=== PATIENT | female | born 1990 | race Caucasian/White ===

== ENCOUNTER 2019-12-15 15:33 | Emergency (ER) | payer OTHER, SELFPAY ==
[2019-12-15 15:40] VITALS: BP 116/71; PULSE 117; RESP 20; TEMP 37.6; O2SAT 96
--- NOTE | 2019-12-15 17:06 | ED.GENADULT ---
HPI - General Adult General Chief complaint: Unspecified Stated complaint: ALCOHOL USE Time Seen by Provider: 12/15/19 16:44 History of Present Illness HPI narrative: Found sleeping in a running vehicle outside of her boyfriends house. Told that she needed to come to the ED. She admits to drinking prior to this incident. She has no complaints at this time. Related Data Home Medications Medication Instructions Recorded Confirmed No Home Medications 12/15/19 12/15/19 Allergies Allergy/AdvReac Type Severity Reaction Status Date / Time Sulfa (Sulfonamide Allergy Unknown Other Unverified 12/15/19 15:51 Antibiotics) Review of Systems Review of Systems: All systems reviewed & are unremarkable except as noted in HPI and below Constitutional: Constitutional: Denies fever(s) Cardiovascular: Cardiovascular: Denies chest pain Respiratory: Respiratory: Denies dyspnea Gastrointestinal: Gastrointestinal: Denies abdominal pain Neurologic: Denies numbness and Denies weakness PMFSH Social History Social History Gender identity (if verbalized by the patient): Female Exam Const: General: healthy appearing, no acute distress and alert Nutritional Appearance: well nourished Orientation/consciousness: patient oriented x3 HENMT: Head: normal to inspection Resp: Effort & Inspection: normal respiratory effort Neuro: General: patient oriented x3, moves all extremities and CN's II-XI intact bilaterally Speech: normal speech Gait exam (Neuro): Normal gait present Extrem: General: normal to inspection Course Vital Signs Vital signs: Vital Signs Temperature 37.6 C 12/15/19 15:40 Pulse Rate 117 H 12/15/19 15:40 Respiratory Rate 12/15/19 15:40 Blood Pressure 116/71 12/15/19 15:40 Pulse Oximetry 96 12/15/19 15:40 Temperature 37.6 C 12/15/19 15:40 Pulse Rate 117 H 12/15/19 15:40 Respiratory Rate 12/15/19 15:40 Blood Pressure 116/71 12/15/19 15:40 Pulse Oximetry 96 12/15/19 15:40 Medical Decision Making MDM Narrative Medical decision making narrative: She has no complaints and she is fully oriented with stable gait. Will discharge with sober ride. Medical Records Medical records reviewed: Yes I reviewed the patient's medical records. Vital Signs Vital Signs: Vital Signs Temperature 37.6 C 12/15/19 15:40 Pulse Rate 117 H 12/15/19 15:40 Respiratory Rate 20 12/15/19 15:40 Blood Pressure 116/71 12/15/19 15:40 Pulse Oximetry 96 12/15/19 15:40 Temperature 37.6 C 12/15/19 15:40 Pulse Rate 117 H 12/15/19 15:40 Respiratory Rate 20 12/15/19 15:40 Blood Pressure 116/71 12/15/19 15:40 Pulse Oximetry 96 12/15/19 15:40 Discharge Plan Discharge Clinical Impression: Alcohol intoxication Qualifiers: Complication of substance-induced condition: uncomplicated Qualified Code(s): F10.920 - Alcohol use, unspecified with intoxication, uncomplicated Patient Disposition: Home, Self-Care Condition: Stable Instructions: Alcohol Intoxication (ED) Prescriptions: No Action No Home Medications RF: 0 Follow-up/Referrals: PHYSICIAN,PHYSICIAN [Primary Care Provider] -
--- NOTE | 2019-12-15 17:21 | PC.NURSE ---
pt decided it was time for her to leave pt did not allow any vitals to be taken and refused discharge papers police called pt was yelling at staff and refusing to call a ride after police arrived pt called her mother to pick her up pt at front door with police pt signed discharge papers and refused info paperwork at 1720
== END 2019-12-15 17:41 | disposition home or self-care (01) ==
PROVIDERS: Emergency Provider Emergency Medicine
DX: F10.120 Alcohol abuse with intoxication, uncomplicated (principal); Y90.9 Presence of alcohol in blood, level not specified
CPT/HCPCS: 99281

== ENCOUNTER 2020-01-12 16:38 | Emergency (ER) | payer OTHER, SELFPAY ==
--- NOTE | ~2020-01-12 | XR_ITS ---
EXAMINATION: XR chest 1V portable INDICATION: Chest and abdominal pain TECHNIQUE: Portable AP chest at 1718 hours COMPARISON: 03/27/2019 FINDINGS: The lungs are free of acute opacities. There is no pleural effusion or pneumothorax. The ca rdiomediastinal silhouette is normal. The visualized bones and soft tissues are unremarkable. IMPRESSION: 1. No acute cardiopulmonary abnormality. Reviewed, dictated and finalized at location A.
[2020-01-12 16:44] VITALS: BP 140/102; PULSE 119; RESP 18; TEMP 36.3; O2SAT 98
--- NOTE | 2020-01-12 17:05 | ED.ABDPAIN ---
HPI - Abdominal Pain General Chief Complaint: Abdominal Pain Stated Complaint: n/v, abd and back pain Time Seen by Provider: 01/12/20 16:42 Source: patient and family Mode of arrival: ambulatory Limitations: no limitations History of Present Illness HPI narrative: Patient is a 29-year-old female who presents with several days duration of upper respiratory symptoms noting sore throat fever chills body aches nonproductive cough with associated vomiting and diarrhea with belly cramping. Patient notes she was positive for strep pharyngitis at her work started on antibiotics was also tested for COVID but they have been unable to find her results. On arrival patient notes that she cannot keep down any fluids. Patient has not taken anything for her symptoms due to inability to tolerate p.o. intake in the last 2 days Related Data Allergies Allergy/AdvReac Type Severity Reaction Status Date / Time Sulfa (Sulfonamide Allergy Unknown Other Unverified 01/12/20 18:24 Antibiotics) Review of Systems Review of Systems: All systems reviewed & are unremarkable except as noted in HPI and below PMFSH Social History Social History Gender identity (if verbalized by the patient): Female Exam Narrative: Exam Narrative: GENERAL: Ill-appearing, well-nourished, and in no acute distress. HEAD: Normocephalic, atraumatic. EYES: PERRLA and EOMI. ENT: Nares clear, no rhinorrhea or epistaxis. Mucous membranes moist. Oropharynx with erythema and without tonsillar hypertrophy exudate or other lesions. NECK: Supple. No adenopathy or masses. CHEST: Clear to auscultation. No respiratory distress. No wheezes rales or rhonchi HEART: Tachycardic rate and irregular rhythm. No murmur heard. Normal peripheral pulses. ABDOMEN: Soft, generalized tenderness, nondistended EXTREMITIES: Normal range of motion. No edema. SKIN: Warm, dry, no rash. NEURO: No focal deficits. Alert and oriented x3. PSYCH: Normal mood and affect. Course Course Emergency Course: Patient in the room at this time resting comfortably being hydrated feeling much better with interventions will be discharged home with follow-up with primary care also instructed with with reasons to return patient nontoxic-appearing. Patient has been given fluids and medications in the emergency department with improvement of symptoms as noted. Patient tolerating p.o. intake Vital Signs Vital signs: Vital Signs Temperature 97.4 F L 01/12/20 16:44 Pulse Rate 119 H 01/12/20 16:44 Respiratory Rate 18 01/12/20 16:44 Blood Pressure 140/102 H 01/12/20 16:44 Pulse Oximetry 98 01/12/20 16:44 Temperature 97.4 F L 01/12/20 16:44 Pulse Rate 90 01/12/20 18:40 Respiratory Rate 20 01/12/20 18:40 Blood Pressure 147/98 H 01/12/20 18:40 Pulse Oximetry 100 01/12/20 18:40 MDM - Abdominal Pain MDM Narrative Medical decision making narrative: Patient in the room at this time in no distress feeling better with interventions given Bicillin shot in the emergency department. Patient was hydrated and tested for COVID-19. Patient agreeing to self quarantine until results have been obtained. Patient is not hypoxic in the room in no distress had improvement with medications tolerating p.o. intake. Patient provided with reasons to return Lab Data Result diagrams: 01/12/20 17:30 01/12/20 17:30 Labs: Lab Results 01/12/20 01/12/20 01/12/20 Range/Units 17:30 17:30 17:30 WBC 8.9 (4.5-10.0) K/mm3 RBC 4.04 L (4.2-5.4) M/mm3 Hgb 14.6 (12.0-15.0) g/dL Hct 41.3 (37.0-47.0) % MCV 102.2 H (80-100) fl MCH 36.1 H (26-34) pg MCHC 35.4 (32-36) g/dl RDW 15.4 H (11.5-14.5) % Plt Count 155 (150-375) k/mm3 MPV 9.7 (7.4-10.4) fl Immature Gran % (Auto) 0.5 (0-0.5) % Neut % (Auto) 79.9 H (45.5-73.1) % Lymph % (Auto) 13.9 L (18.3-44.2) % [place] % (Auto) 5.3
[2020-01-12] MEDS: FAMOTIDINE 20 MG/2 ML VIAL IV PUSH (17:19)
[2020-01-12] MEDS: ONDANSETRON INJ 4 MG/2 ML VIAL IV PUSH (17:19)
[2020-01-12] MEDS: SODIUM CHLORIDE 0.9% IV 1,000 ML 999 ML (17:19)
[2020-01-12 17:38] LABS: Basophils Percent Auto 0.3 % (0.2-1.2); Eosinophils Percent Auto 0.1 % (0-4.4); Hematocrit 41.3 % (37.0-47.0); Hemoglobin 14.6 g/dL (12.0-15.0); Immature Granulocyte Absolute 0.04 K/mm3 (0.00-0.031); Immature Granulocyte Percent A 0.5 % (0-0.5); Lymphocytes Absolute Auto 1.23 K/mm3 (0.9-3.2); Lymphocytes Percent Auto 13.9 % (18.3-44.2); Mean Corpuscular HGB Conc 35.4 g/dl (32-36); Mean Corpuscular Hemoglobin 36.1 pg (26-34); Mean Corpuscular Volume 102.2 fl (80-100); Mean Platelet Volume 9.7 fl (7.4-10.4); Monocytes Absolute Auto 0.5 K/mm3 (0.1-0.6); Monocytes Percent Auto 5.3 % (2.6-8.5); Neutrophils Absolute Auto 7.1 K/mm3 (1.3-6.7); Neutrophils Percent Auto 79.9 % (45.5-73.1); Platelet Count Result 155 k/mm3 (150-375); Red Blood Count 4.04 M/mm3 (4.2-5.4); Red Cell Distribution Width 15.4 % (11.5-14.5); White Blood Count 8.9 K/mm3 (4.5-10.0)
[2020-01-12 17:47] LABS: INR 1.1; Prothrombin Time 13.5 Seconds (11.1-14.7)
[2020-01-12 17:48] LABS: Partial Thromboplastin Time 28.1 SECONDS (22.3-36.8)
[2020-01-12 17:53] LABS: Alanine Aminotransferase 36 U/L (4-35); Alkaline Phosphatase 134 U/L (38-126); Aspartate Amino Transferase 75 U/L (14-36); Blood Urea Nitrogen 12 mg/dL (7-17); CRP < 0.5 mg/dL (<1.0); Calcium 8.5 mg/dL (8.4-10.2); Carbon Dioxide 30 mmol/L (22-30); Chloride 97 mmol/L (98-107); Estimated CRCL calculation 138 ml/min; Estimated Glomerular Filt Rate > 60; Glucose 121 mg/dL (65-105); Lipase 89 U/L (23-300); Potassium 3.9 mmol/L (3.4-5.0); Sodium 135 mmol/L (137-145)
[2020-01-12 18:07] LABS: Lactic Acid Reflex 1.4 mmol/L (0.7-2.1)
[2020-01-12] MEDS: LACTATED RINGERS 1,000 ML 999 ML IV CONT (18:08)
[2020-01-12 18:40] VITALS: BP 147/98; PULSE 90; RESP 20; O2SAT 100
[2020-01-12 19:35] VITALS: BP 130/70; PULSE 80; RESP 20; O2SAT 99
[2020-01-12] MEDS: PENICILLIN G BENZATHINE 1,200,000 UNITS/2 ML SYRINGE 1200000 UNITS IM (19:35)
[2020-01-14 13:33] LABS: SARS-CoV-2 RNA PCR Negative
== END 2020-01-12 19:37 | disposition home or self-care (01) ==
PROVIDERS: Emergency Medicine Emergency Medical Services; Emergency Provider Emergency Medicine; PCP Internal Medicine Gastroenterology
DX: J06.9 Acute upper respiratory infection, unspecified (principal); Z20.828 Contact with and (suspected) exposure to other viral communicable diseases
CPT/HCPCS: 36415; 71045; 80053; 83605; 83690; 85025; 85610; 85730; 86140; 87040; 87081; 87635; 87880; 96365; 96372; 96375; 99284; C9803; J0131; J0561; J1100; J2405; J7030; J7120; U0003

== ENCOUNTER 2020-04-09 17:56 | Observation (INO) | payer OTHER, SELFPAY ==
--- NOTE | ~2020-04-09 | CT_ITS ---
EXAMINATION: CT abdomen pelvis w con INDICATION: Abdominal and rectal pain TECHNIQUE: Computed tomographic images of the abdomen and pelvis were obtained after the administrati on of 100 cc of Omnipaque 350 intravenous contrast. The dose-length product (DLP) was 435.66 mGy-cm. Automated exposure control and iterative reconstruction technique were employed. COMPARISON: None FINDINGS: The lung bases are clear. The heart size is normal. The liver is diffusely low in attenuati on when compared with the spleen, consistent with hepatic steatosis. The spleen, pancreas, gallbladde r, and adrenal glands are normal. The kidneys are unremarkable. No pathologically enlarged abdominal or pelvic lymph nodes are identified. There is no free intraperitoneal gas or evidence of bowel obstr uction. There is a 1.6 x 1.0 cm cystic area to the right of midline below the level of the pubic symp hysis which appears to be associated with the inferior vagina/labia majora. IMPRESSION: 1. No CT correlate for the patient's symptoms. 2. Likely Bartholin's gland cyst to the right of midline in the pelvis. Reviewed, dictated and finalized at location A.
[2020-04-09 18:12] VITALS: BP 141/86; PULSE 130; RESP 19; TEMP 36.6; O2SAT 99
[2020-04-09 18:29] LABS: Basophils Absolute Auto 0.1 K/mm3 (0.0-0.1); Basophils Percent Auto 0.5 % (0.2-1.2); Eosinophils Absolute Auto 0.1 K/mm3 (0-0.3); Eosinophils Percent Auto 0.3 % (0-4.4); Hematocrit 43.2 % (37.0-47.0); Hemoglobin 15.2 g/dL (12.0-15.0); Immature Granulocyte Absolute 0.07 K/mm3 (0.00-0.031); Immature Granulocyte Percent A 0.5 % (0-0.5); Lymphocytes Absolute Auto 2.46 K/mm3 (0.9-3.2); Lymphocytes Percent Auto 16.2 % (18.3-44.2); Mean Corpuscular HGB Conc 35.2 g/dl (32-36); Mean Corpuscular Hemoglobin 34.9 pg (26-34); Mean Corpuscular Volume 99.1 fl (80-100); Mean Platelet Volume 8.6 fl (7.4-10.4); Monocytes Absolute Auto 0.6 K/mm3 (0.1-0.6); Monocytes Percent Auto 3.8 % (2.6-8.5); Neutrophils Percent Auto 78.7 % (45.5-73.1); Platelet Count Result 306 k/mm3 (150-375); Red Blood Count 4.36 M/mm3 (4.2-5.4); Red Cell Distribution Width 13.9 % (11.5-14.5); White Blood Count 15.2 K/mm3 (4.5-10.0)
[2020-04-09 18:42] LABS: Alanine Aminotransferase 27 U/L (4-35); Albumin Level 4.2 g/dL (3.5-5.1); Alkaline Phosphatase 100 U/L (38-126); Anion Gap 11 mmol/L (8-16); Aspartate Amino Transferase 40 U/L (14-36); Bilirubin,Total 0.8 mg/dL (0.2-1.3); Blood Urea Nitrogen 10 mg/dL (7-17); Calcium 9.6 mg/dL (8.4-10.2); Carbon Dioxide 27 mmol/L (22-30); Chloride 101 mmol/L (98-107); Estimated CRCL calculation 102 ml/min; Estimated Glomerular Filt Rate > 60; Glucose 115 mg/dL (65-105); Lipase 61 U/L (23-300); Potassium 3.7 mmol/L (3.4-5.0); Sodium 139 mmol/L (137-145)
[2020-04-09 18:57] VITALS: BP 132/77; PULSE 120; RESP 14; O2SAT 100
--- NOTE | 2020-04-09 19:18 | ED.GENADULT ---
HPI - General Adult General Chief complaint: Unspecified Stated complaint: Rectal pain Time Seen by Provider: 04/09/20 19:03 Source: RN notes reviewed History of Present Illness HPI narrative: Patient presents emergency department from home for rectal pain. Patient states that she has had rectal pain that began 3 days ago and progressively worsened. States she has a history of hemorrhoids and believes it was hemorrhoids but states that the symptoms of become so severe that she cannot longer sit or touch the area. States that the pain is progressed into the abdomen and she has had associated nausea and vomiting. She denies any fevers or chills chest pain shortness of breath or any other symptoms. States she is taken no pain medication today patient states she has noted some drainage from the rectal region that she states is nonbloody Related Data Home Medications Medication Instructions Recorded Confirmed Adderall 20 mg BID 04/10/20 04/10/20 loratadine [Claritin] 10 mg PO PRN PRN 04/10/20 04/10/20 ondansetron 4 mg PO 4XW PRN 04/10/20 04/10/20 Allergies Allergy/AdvReac Type Severity Reaction Status Date / Time Sulfa (Sulfonamide Allergy Unknown Other Verified 04/09/20 18:26 Antibiotics) Review of Systems Review of Systems: Narrative: Gen.: Denies fevers or chills ENT: Denies congestion Respiratory: Denies shortness of breath or cough CV: Denies chest pain or palpitations GI: See HPI denies burning, urgency, frequency or hematuria Musculoskeletal: Denies back pain or muscle pain Neuro: Denies numbness, tingling, weakness or focal weakness Skin: Denies rash Except as documented, all other systems reviewed and negative FOR[facility]LY [facility] Past Medical History Medical History (Updated 04/10/20 @ 04:56 by Yves Day DO) ADHD Patient denies significant medical history Family History Family History Father Colon cancer Social History Social History Smoking status: Never smoker Alcohol intake: current Drinks per week: 5 Substance use: never Substance use type: does not use Spiritual care concerns: No Exam Narrative: Exam Narrative: APPEARANCE: No acute distress, nontoxic, resting in bed HEENT: Normocephalic, atraumatic, OMM RESPIRATORY: No respiratory distress, clear to auscultation bilaterally with no rhonchi wheezing or rales CARDIOVASCULAR: RRR s murmur ABDOMINAL: Soft, nondistended, tender palpation right lower quadrant left lower quadrant, no tenderness right upper quadrant left upper quadrant, no rebound or guarding Rectal: Erythema diffusely around the rectum. No abscesses seen or fluctuance hemorrhoid present with no active bleeding Pelvic: Normal external exam, no abscesses seen, small amount of thick whitish-yellow discharge in vaginal canal cervix is closed, no cervical motion tenderness MUSCULOSKELETAl: Moves all extremities. No clubbing, cyanosis or edema. NEURO: Awake and alert. Following commands, speech normal, no focal deficits SKIN:: Warm, dry. Normal Color PSYCHIATRIC: Normal affect/mood Course Course Emergency Course: Discussed Dr Calloway presentation work-up. Discussed CT scan and no evidence of abscess or Bartholin's gland cyst seen on eval agrees with consult will follow as inpatient Discussed Dr. Tristan presentation work-up. Agrees with consult follow as inpatient Discussed with Dr. Newell presentation work-up. Agrees with admission agrees with starting patient on Zosyn and bank Discussed with patient and family results of workup and diagnosis. Discussed need for admission. Patient and family understand and agree to current treatment plan Vital Signs Vital signs: Vital Signs Temperature 97.9 F 04/09/20 18:12 Pulse Rate 130 H 04/09/20 18:12 Respiratory Rate 19 04/09/20 18:12 Blood Pressure 141/86 H 04/09/20 18:12 Pulse Oximetry 99 04/09/20 18:12
[2020-04-09] MEDS: SODIUM CHLORIDE 0.9% IV 1,000 ML 999 ML IV CONT ×2 (19:23→20:43)
[2020-04-09] MEDS: MORPHINE SULFATE (*CRX) 4 MG/ML INJ IV PUSH (19:23)
[2020-04-09] MEDS: ONDANSETRON INJ 4 MG/2 ML VIAL IV PUSH (19:23)
[2020-04-09 19:34] LABS: Add Urine Microscopic? YES; Amorphous Sediment Urine Few; Appearance Urine Cloudy (Clear); Bacteria Urine Trace /hpf; Bilirubin Urine 1+ (Negative); Blood Urine 1+ (Negative); Color Urine Amber (Yellow); Glucose Urine UA Negative (Negative); Hyaline Casts Urine 15-19 /lpf; Ketones Urine Negative (Negative); Leukocyte Esterase Ur 1+ LEU/UL (Negative); Mucus Urine Heavy /lpf; Nitrate Urine Negative (Negative); Protein Urine 1+ mg/dL (Negative); Squamous Epithelial Cell Urine Many /hpf (Few); WBC Urine 31-50 /hpf
[2020-04-09 19:39] LABS: Lactic Acid Reflex 1.4 mmol/L (0.7-2.1)
[2020-04-09 20:30] VITALS: BP 125/87; PULSE 106; RESP 18; O2SAT 99
[2020-04-09] MEDS: KETOROLAC 30 MG/ML VIAL (*BKC) IV PUSH (20:45)
[2020-04-09] MEDS: MORPHINE SULFATE (*CRX) 2 MG/ML INJ IV PUSH (22:29)
[2020-04-09 22:33] VITALS: BP 126/94; PULSE 112; RESP 19; O2SAT 100
[2020-04-10 00:20] VITALS: BP 134/94; PULSE 99; RESP 18; O2SAT 100
--- NOTE | 2020-04-10 00:34 | ADMGEN ---
This patient, Jazmin Fay, was admitted to 2 Medical Room 256-01. Patient/family oriented to hospital policies and general routines including ID bracelet, bed and alarms, visiting hours, pain management, procedures, bathroom and other care routines, personal items, smoking policy, room service/diet, and visiting hours. Valuables list has been completed. Information on how to activate the Rapid Response Team has been discussed. Patient/Family are encouraged to report perceived risks to care and to ask questions if they do not understand what they are told or what they should do.
[2020-04-10 01:15] VITALS: BP 125/87; PULSE 85; RESP 16; TEMP 36.3; O2SAT 100; BMI 26.6
[2020-04-10] MEDS: MORPHINE SULFATE (*CRX) 4 MG/ML INJ IV PUSH ×5 (01:17→20:38)
[2020-04-10] MEDS: SODIUM CHLORIDE 0.9% IV 1,000 ML 125 ML IV CONT ×3 (01:21→23:15)
--- NOTE | 2020-04-10 03:55 | PM.IMHP ---
H&P: HPI History of Present Illness Date/Time: 04/10/20 03:55 Chief complaint: abd pain, rectal cellulitis, leukocytosis Narrative: This is a pleasant 37-year-old female with known ADHD who presented to the hospital for evaluation of rectal pain. Patient complains having severe rectal pain for the past 3 days. associated symptoms include nausea and vomiting although she denies any fevers, chills, chest pain, rectal bleeding, or diarrhea. the patient does report that she has hemorrhoids that have bothered her in the past. The patient was evaluated emergency room this evening and routine labs were obtained which demonstrated leukocytosis of 15,200 and urinalysis was grossly abnormal. ER provider started wide-spectrum antibiotics as it was thought that the patient may have perineum cellulitis. CT abdomen pelvis was obtained which demonstrated a Bartholin's gland cyst to the right of midline in the pelvis. ER provider has consulted gynecology to evaluate the patient. General surgery has also been consulted. on further questioning the patient does admit that she has had burning urination over the past few days and some vaginal discharge which he believes is related to a possible UTI. Review of Systems Review of Systems: All systems reviewed & are unremarkable except as noted in HPI and below PMFSH Past Medical History Medical History (Updated 04/10/20 @ 05:43 by Fernando Newell MD) ADHD Patient denies significant medical history Family History Family History Father Colon cancer Social History Social History Smoking status: Never smoker Alcohol intake: current Drinks per week: 5 Substance use: never Substance use type: does not use Spiritual care concerns: No Meds Home Medications and Allergies Home Medications Medication Instructions Recorded Confirmed Type Adderall 20 mg BID 04/10/20 04/10/20 History loratadine [Claritin] 10 mg PO PRN PRN 04/10/20 04/10/20 History ondansetron 4 mg PO 4XW PRN 04/10/20 04/10/20 History Allergies Allergy/AdvReac Type Severity Reaction Status Date / Time Sulfa (Sulfonamide Allergy Unknown Other Verified 04/09/20 18:26 Antibiotics) Vital Signs Vital Signs - 24 hr 04/09/20 18:12 04/09/20 18:57 04/09/20 20:30 Temperature 36.6 C Pulse Rate 130 H 120 H 106 H Respiratory Rate 19 14 18 Blood Pressure 141/86 H 132/77 125/87 Pulse Oximetry 99 100 99 04/09/20 22:33 04/10/20 00:20 04/10/20 01:15 Temperature 36.3 C L Pulse Rate 112 H 99 85 Respiratory Rate 19 18 16 Blood Pressure 126/94 H 134/94 H 125/87 Pulse Oximetry 100 100 100 Exam Const: General: cooperative, alert, awake, in distress mild and uncomfortable Nutritional Appearance: well nourished Orientation/consciousness: patient oriented x3 HENMT: Head: normal to inspection General nose exam: Normal external nose present Face and sinus: normal facial exam Mouth: Yes Normal oral and palatal mucosa present and Yes oropharynx normal Eyes: Pupils: Equal, round and reactive pupils present EOM: EOMs intact bilaterally Neck: Neck: supple and no JVD Thyroid: thyroid normal Lymphatic: lymphadenopathy not noted Resp: Effort & Inspection: normal respiratory effort Auscultation: clear to auscultation bilaterally Cardio: Rate: tachycardic Rhythm: regular rhythm Heart sounds: no murmurs GI: Inspection: normal to inspection Auscultation: normal bowel sounds Rectal Exam: External hemorrhoid(s) present ( large external hemorrhoid++ ) Skin: General skin exam: erythema ( of perineum++ ) Neuro: General: patient oriented x3 Cranial nerves: Yes CN's II-XII intact bilaterally and Yes Equal, round and reactive pupils present Speech: normal speech Motor exam (neuro): 5/5 motor strength present throughout Sensory Exam: normal sensation Extrem: General: normal to inspectio
[2020-04-10] MEDS: BENZOCAINE 20% HEMORRHOIDAL OINTMENT 28 GM 1 APPLIC TOPICAL (04:43)
[2020-04-10 06:00] VITALS: BP 122/77; PULSE 89; RESP 16; TEMP 36.1; O2SAT 98
[2020-04-10 06:06] LABS: Basophils Absolute Auto 0.1 K/mm3 (0.0-0.1); Basophils Percent Auto 0.5 % (0.2-1.2); Eosinophils Absolute Auto 0.2 K/mm3 (0-0.3); Eosinophils Percent Auto 2.2 % (0-4.4); Hematocrit 35.7 % (37.0-47.0); Hemoglobin 12.3 g/dL (12.0-15.0); Immature Granulocyte Absolute 0.05 K/mm3 (0.00-0.031); Immature Granulocyte Percent A 0.5 % (0-0.5); Lymphocytes Absolute Auto 2.23 K/mm3 (0.9-3.2); Mean Corpuscular HGB Conc 34.5 g/dl (32-36); Mean Corpuscular Hemoglobin 34.1 pg (26-34); Mean Corpuscular Volume 98.9 fl (80-100); Monocytes Absolute Auto 0.5 K/mm3 (0.1-0.6); Monocytes Percent Auto 5.4 % (2.6-8.5); Neutrophils Absolute Auto 6.6 K/mm3 (1.3-6.7); Neutrophils Percent Auto 68.4 % (45.5-73.1); Platelet Count Result 224 k/mm3 (150-375); Red Blood Count 3.61 M/mm3 (4.2-5.4); Red Cell Distribution Width 13.6 % (11.5-14.5); White Blood Count 9.7 K/mm3 (4.5-10.0)
[2020-04-10 06:22] LABS: Alanine Aminotransferase 16 U/L (4-35); Albumin Level 2.8 g/dL (3.5-5.1); Alkaline Phosphatase 69 U/L (38-126); Anion Gap 5 mmol/L (8-16); Aspartate Amino Transferase 24 U/L (14-36); Bilirubin,Total 0.8 mg/dL (0.2-1.3); Blood Urea Nitrogen 10 mg/dL (7-17); Calcium 7.9 mg/dL (8.4-10.2); Carbon Dioxide 24 mmol/L (22-30); Chloride 107 mmol/L (98-107); Estimated CRCL calculation 138 ml/min; Estimated Glomerular Filt Rate > 60; Glucose 128 mg/dL (65-105); Potassium 3.4 mmol/L (3.4-5.0); Sodium 136 mmol/L (137-145)
[2020-04-10] MEDS: ONDANSETRON INJ 4 MG/2 ML VIAL IV PUSH ×3 (08:30→18:58)
[2020-04-10] MEDS: HYDROcodone/acetaminophen (*CRX) 5-325 MG TABLET 1 TAB PO ×3 (10:50→23:19)
[2020-04-10] MEDS: WITCH HAZEL 40 PADS 1 PAD TOPICAL (12:40)
--- NOTE | 2020-04-10 12:40 | PM.IMHP ---
H&P: HPI History of Present Illness Date/Time: 04/10/20 12:40 Chief complaint: Rectal pain Narrative: 29 y/o with a 3 day history of pain in the rectum. No fevers. Pain medicines have not helped. Recently and has had a new sexual partner. The ED physician phoned me last evening to discuss this patient's case. In particular, there was a small Bartholin's gland cyst seen on CT. The patient says she has never been diagnosed with one in the past. She has no diarrhea. Review of Systems Review of Systems: All systems reviewed & are unremarkable except as noted in HPI and below PMFSH Past Medical History Medical History ADHD Patient denies significant medical history Family History Family History Father Colon cancer Social History Social History Smoking status: Never smoker Alcohol intake: current Drinks per week: 5 Substance use: never Substance use type: does not use Spiritual care concerns: No Comments Past OB History: twins at term Meds Home Medications and Allergies Home Medications Medication Instructions Recorded Confirmed Type Adderall 20 mg BID 04/10/20 04/10/20 History loratadine [Claritin] 10 mg PO PRN PRN 04/10/20 04/10/20 History ondansetron 4 mg PO 4XW PRN 04/10/20 04/10/20 History Allergies Allergy/AdvReac Type Severity Reaction Status Date / Time Sulfa (Sulfonamide Allergy Unknown Other Verified 04/09/20 18:26 Antibiotics) Vital Signs Vital Signs - 24 hr 04/10/20 00:20 04/10/20 01:15 04/10/20 06:00 Temperature 36.3 C L 36.1 C L Pulse Rate 99 85 89 Respiratory Rate 18 16 16 Blood Pressure 134/94 H 125/87 122/77 Pulse Oximetry 100 100 98 04/10/20 14:00 04/10/20 21:28 Temperature 36.3 C L 36.2 C L Pulse Rate 80 93 Respiratory Rate 16 16 Blood Pressure 117/72 114/74 Pulse Oximetry 99 99 Exam Const: Orientation/consciousness: patient oriented x3 Other: Well-developed, well-nourished female in no acute distress. Afebrile. Vital signs stable and normal. Neck: Thyroid: thyroid normal Lymphatic: no lymphadenopathy noted (in neck, axilla or inguinal nodes) Resp: Effort & Inspection: normal respiratory effort Auscultation: clear to auscultation bilaterally Cardio: Rate: regular rate Rhythm: regular rhythm Heart sounds: S1 normal heart sound present and S2 normal heart sound present GI: Other: ABD: Soft, nontender, nondistended. No guarding or rebound tenderness. No hepatosplenomegaly. : General: Yes no CVA tenderness Other: Exam is limited, as it was performed in the hospital bed. External genitalia: normal female hair distribution. A small 1cm right Bartholin's gland cyst is palpated. It is flaccid and completely nontender. There is no warmth or overlying erythema. It is located deep in the labial tissue and is difficult to palpate. Urethral meatus: no lesion, non prolapsed. Anus/perineum: The perianal skin is exquisitely tender to palpation just to the left of midline. There are two small erythematous ulcers vs. excoriations at the site of the tenderness. These are swabbed for HSV DNA by PCR. Back/Spine/Pelvis: Back: no CVA tenderness Skin: General skin exam: normal color and no rashes or lesions noted Neuro: General: patient oriented x3 Extrem: Other: Extremities: nontender with no edema Psych: Mental Status: mental status grossly normal Affect: normal affect H&P: Results Labs Labs: Short CBC 04/10/20 Range/Units 05:42 WBC 9.7 (4.5-10.0) K/mm3 Hgb 12.3 (12.0-15.0) g/dL Hct 35.7 L (37.0-47.0) % Plt Count 224 (150-375) k/mm3 BMP 04/10/20 05:42 Sodium 136 L Potassium 3.4 Chloride 107 Carbon Dioxide 24 BUN 10 Creatinine 0.50 L Glucose 128 H Calcium 7.9 L Liver Function 04/10/20 Range/Units
[2020-04-10 14:00] VITALS: BP 117/72; PULSE 80; RESP 16; TEMP 36.3; O2SAT 99
--- NOTE | 2020-04-10 14:25 | PM.IMPN ---
Progress Note: A&P Assessment and Plan (1) External hemorrhoid: Code(s): K64.4 - Residual hemorrhoidal skin tags Status: Acute Assessment and Plan: I suspect that the patient's severe rectal pain is related to her external hemorrhoid and that the patient will likely benefit from general surgery to evaluate and possible extraction of a thrombosed external hemorrhoid given her severe symptoms. Continue topical Tucks pads and analgesics prn. Appreciate general surgery recommendations. (2) Sepsis: Qualifiers: Sepsis type: sepsis due to unspecified organism Sepsis acute organ dysfunction status: without acute organ dysfunction Qualified Code(s): A41.9 - Sepsis, unspecified organism Code(s): A41.9 - Sepsis, unspecified organism Status: Acute Assessment and Plan: Present on admisison with tachycardia and leukocytosis. Lactic 1.4. I suspect the patient's source of infection is a urinary tract infection given her symptoms and abnormal urinalysis. Blood cultures and urine cultures are pending. Sepsis seems to have resolved. Continue IV antibiotics while awaiting culture. Continue gentle IV fluids. (3) Urinary tract infection: Qualifiers: Hematuria presence: without hematuria Urinary tract infection type: site unspecified Qualified Code(s): N39.0 - Urinary tract infection, site not specified Code(s): N39.0 - Urinary tract infection, site not specified Status: Acute Assessment and Plan: The patient has urinary tract infection with dysuria and grossly abnormal urinalysis. Await urine culture. Continue IV antibiotics for urinary tract infection. Urine cultures pending. (4) ADHD: Qualifiers: Attention deficit-hyperactivity disorder type: unspecified Qualified Code(s): F90.9 - Attention-deficit hyperactivity disorder, unspecified type Code(s): F90.9 - Attention-deficit hyperactivity disorder, unspecified type Status: Acute Assessment and Plan: Continue home Adderall. (5) Herpes: Code(s): B00.9 - Herpesviral infection, unspecified Status: Acute Assessment and Plan: Suspected, per conversation with Dr. Calloway, OBGYN. Viral culture has been ordered and valacyclovir has been initiated per Dr. Calloway. Appreciate hub lead recommendations. Await results of viral culture. Subjective Date/time seen: 04/10/20 14:25 Interval history: Date of service: 04/10/2020 Jazmin Fay is a 29 year old female with a history of ADHD and hemorrhoids who is seen in follow up for perineal pain and UTI. She complains of rectal pain rated 8/10 today. She reports significant discomfort and general feelings of malaise. She endorses dysuria. She has vomited 3 times today, and she believes this is secondary to pain. She feels a bit nauseous at this time. She was able to eat some of her breakfast and she is drinking water. She complains of abdominal cramping. She denies melena or hematochezia. No sob, cough, congestion, chest pain, palpitations. No anxiety or depression. She is having trouble sleeping secondary to pain. No additional concerns. Review of Systems Review of Systems: Narrative: 12 systems reviewed with pertinent positives and negatives as per HPI. Exam Narrative: Exam Narrative: Ms. Fay is a well nourished, well appearing 29-year-old female who is lying in the left lateral decubitus position. She appears comfortable and is in NARD. HR 89, BP 127/77, R 16, T 97.0?, 98% on room air Neuro: awake, alert and oriented x4, speech clear, no focal neuro deficits noted HEENMT: normocephalic, atraumatic, EOMI, sclerae anicteric, moist oral mucosa, tongue midline, nares patent Neck: supple, no lymphadenopathy Respiratory: clear to auscultation bilaterally, nonlabored breathing Cardio: regular rate, regular rhythm with S1-S2 Abdomen: nondistended, normoactive bowel sounds, soft, nontender to palpation, no rigidi
--- NOTE | 2020-04-10 17:08 | PM.CNGS ---
Assessment and Plan Assessment and plan (1) Pruritus ani: Onset Date: ~03/2020 Code(s): L29.0 - Pruritus ani Status: Acute Assessment and Plan: I suspect that the patient has some element of pruritus ani. This may be because of using various oitments and creams and keeping the area too moist. I reccomend we begin by using some Aloviata cream to this area 2- 3 times a day after a hand-held shower or Sitz bath as to keep the area clean and then aim toward getting it to be more dry rather than so superficially moist. (2) Urinary tract infection: Onset Date: ~03/2020 Qualifiers: Hematuria presence: without hematuria Urinary tract infection type: site unspecified Qualified Code(s): N39.0 - Urinary tract infection, site not specified Code(s): N39.0 - Urinary tract infection, site not specified Status: Acute Assessment and Plan: Cultures are pending and patient's on antibiotics. White count has dropped to within normal range overnight after getting her initial antibiotics. (3) External hemorrhoid: Onset Date: ~2013 Code(s): K64.4 - Residual hemorrhoidal skin tags Status: Acute Assessment and Plan: Patient has non irritated external hemorrhoids which may be helped by the treatments noted above for the puritis ani. No thrombose hemorrhoid present. (4) Sepsis: Onset Date: ~03/2020 Qualifiers: Sepsis acute organ dysfunction status: without acute organ dysfunction Sepsis type: sepsis due to unspecified organism Qualified Code(s): A41.9 - Sepsis, unspecified organism Code(s): A41.9 - Sepsis, unspecified organism Status: Acute Assessment and Plan: Patient apparently met criteria for sepsis in the ER last night. Studies are continuing. Antibiotics are continuing. I do not see anything on anal or rectal examination that would explain her sepsis. Suspect it is more likely related to the urinary tract infection. History of Present Illness Consult details Consult date: 04/10/20 Reason for consult: other (Pain in the perianal area with possible erythema) Requesting physician: Fernando Newell MD Narrative: This is a pleasant 37-year-old female with known ADHD who presented to the ED here at [facility] for evaluation of perianal and pain. Patient complains having severe олег-anal pain for the past 3 days. Associated symptoms include nausea and vomiting although she denies any fevers, chills, chest pain, rectal bleeding, or diarrhea. The patient does report that she has hemorrhoids that have bothered her in the past ever since she delivered twins about 6 years ago. The patient was evaluated emergency room last evening and routine labs were obtained which demonstrated leukocytosis of 15,200 and urinalysis was grossly abnormal. The ER provider started wide-spectrum antibiotics as it was thought that the patient may have perineal cellulitis. CT scan of the abdomen and pelvis was obtained which demonstrated a Bartholin's gland cyst to the right of midline in the pelvis and no other obvious source of sepsis. The ER provider has consulted gynecology to evaluate the patient. General surgery has also been consulted. On further questioning the patient does admit that she has had burning urination over the past few days and some vaginal discharge which she believes is related to a possible UTI. She also c/o of some flare of her external hemorrhiods. Review of Systems Constitutional: Constitutional: Reports as per HPI and Denies headache(s) Eyes: Eyes: Denies loss of vision and Denies eye pain ENT: Reports Normal hearing present, Denies change in voice, Denies dizziness and Denies headache(s) Cardiovascular: Cardiovascular: Denies chest pain and Denies dyspnea Respiratory: Respiratory: Denies dyspnea and Denies wheezing Gastrointestinal: Gastrointestinal: Denies abdominal pain, Reports loose stools and R
[2020-04-10] MEDS: valACYclovir HCL 500 MG TABLET 1000 MG PO (20:31)
[2020-04-10 21:28] VITALS: BP 114/74; PULSE 93; RESP 16; TEMP 36.2; O2SAT 99
[2020-04-11] MEDS: MORPHINE SULFATE (*CRX) 4 MG/ML INJ IV PUSH (05:10)
[2020-04-11 05:31] VITALS: BP 127/55; PULSE 95; RESP 16; TEMP 36.6; O2SAT 99
[2020-04-11 06:15] LABS: Hematocrit 33.3 % (37.0-47.0); Hemoglobin 11.4 g/dL (12.0-15.0); Mean Corpuscular HGB Conc 34.2 g/dl (32-36); Mean Corpuscular Volume 99.4 fl (80-100); Mean Platelet Volume 8.9 fl (7.4-10.4); Platelet Count Result 195 k/mm3 (150-375); Red Blood Count 3.35 M/mm3 (4.2-5.4); Red Cell Distribution Width 13.5 % (11.5-14.5); White Blood Count 7.1 K/mm3 (4.5-10.0)
[2020-04-11 06:25] LABS: Anion Gap 3 mmol/L (8-16); Blood Urea Nitrogen 6 mg/dL (7-17); Carbon Dioxide 24 mmol/L (22-30); Chloride 106 mmol/L (98-107); Estimated CRCL calculation 138 ml/min; Estimated Glomerular Filt Rate > 60; Glucose 99 mg/dL (65-105); Potassium 3.6 mmol/L (3.4-5.0); Sodium 133 mmol/L (137-145)
[2020-04-11] MEDS: SODIUM CHLORIDE 0.9% IV 1,000 ML 125 ML IV CONT (07:51)
[2020-04-11] MEDS: valACYclovir HCL 500 MG TABLET 1000 MG PO (07:52)
[2020-04-11] MEDS: HYDROcodone/acetaminophen (*CRX) 5-325 MG TABLET 1 TAB PO ×2 (07:52→12:01)
[2020-04-11] MEDS: ONDANSETRON INJ 4 MG/2 ML VIAL IV PUSH (07:53)
[2020-04-11] MEDS: WITCH HAZEL 40 PADS 1 PAD TOPICAL (07:53)
[2020-04-11 14:00] VITALS: BP 113/56; PULSE 79; RESP 14; TEMP 36.7; O2SAT 99
--- NOTE | 2020-04-11 15:06 | PM.PNGS ---
Progress Note: A&P Assessment and Plan (1) Pruritus ani: Onset Date: ~03/2020 Code(s): L29.0 - Pruritus ani Status: Acute Assessment and Plan: We will clean was yesterday. Patient does state that the handheld showers are somewhat soothing. Until we know whether not this is herpes continue without of Gepp cream and tucks pads along with frequent showering or Sitz baths. (2) Urinary tract infection: Onset Date: ~03/2020 Qualifiers: Hematuria presence: without hematuria Urinary tract infection type: site unspecified Qualified Code(s): N39.0 - Urinary tract infection, site not specified Code(s): N39.0 - Urinary tract infection, site not specified Status: Acute Assessment and Plan: Medicine is following this problem and adjust antibiotics as indicated. Additional Plan From a general surgical point of view patient could go home at any time. I would consider continuing Sitz baths with her home Jacuzzi or hand-held showering to the area at least 3 times a day until the irritation and pain improved. Will be happy to see her in the office in about 2 weeks and perhaps could do anoscopy to evaluate for possible internal hemorrhoids. Have discussed with her the possibility of a hemorrhoidectomy in the future to remove the enlarged external hemorrhoid that is somewhat bothersome for her. However, I do not believe hemorrhoids are really the cause of the pain that she is currently complaining about. Subjective Subjective Date/Time Seen: 04/11/20 12:06 Patient is sleeping when I entered the room. With nurse academic computing director present careful examination of the perineum was re- a complex today. Patient is complaining still of some irritation and pain of the skin of the perineum. Has not had a bowel movement since entering the hospital so with taking narcotic should probably constipated and will have some pain with the next bowel movement will try to start Metamucil and MiraLax to improve stool / bowel functioning. Review of Systems Constitutional: Constitutional: Reports no additional constitutional complaints ENT: Reports other (Mucous Membranes moist.) Cardiovascular: Cardiovascular: Denies dyspnea Respiratory: Respiratory: Denies pain on inspiration and Denies dyspnea Gastrointestinal: Comments: Patient continues to complain of perineal pain and irritation on the area between the posterior vagina vaginal opening and the anterior of the anal opening. Patient has not had a bowel movement yet since entering the hospital. Musculoskeletal: Musculoskeletal: Reports other (No calf swelling or edema) Integumentary/Breasts: Skin/Breast: Reports system reviewed and no additional complaints, except as docu Exam Const: General: cooperative, no acute distress, alert and awake Orientation/consciousness: patient oriented x3 HENMT: Mouth: Yes moist mucous membranes Neck: Neck: normal visual inspection Chest: Chest palpation & inspection: normal inspection of the chest Resp: Effort & Inspection: normal respiratory effort Auscultation: clear to auscultation bilaterally GI: Inspection: normal to inspection GI Palp: No abdominal tenderness and Yes Soft to palpation Rectal Exam: External hemorrhoid(s) present ( One 1 x 1 cm external hemorrhoid which does not appear to be thrombosed.) and Lesions present (GI) ( There are small excoriation or breakdown sites immediately posterior to t) Other: there are small excoriations or breakdown sites immediately posterior to the anal opening on the skin there also 2 small punctate lesions on the perineal body between the posterior wall of vagina and the anterior side of the anus. Rectal exam not done today. Tucks pad reapplied after examination. Skin: Other: See description under GI. Neuro: General: patient oriented x3 and moves all extremities Speech: normal speech Objective Data Vital Signs Vital Signs: Vital Signs - 24 hr
--- NOTE | 2020-04-11 15:29 | PM.DS ---
DS: Admitting Diagnosis Admitting Diagnosis Admitting Diagnosis: Rectal pain DS: Discharge Diagnosis Discharge Diagnosis (1) Pruritus ani: Onset Date: ~03/2020 Code(s): L29.0 - Pruritus ani Status: Acute Assessment and Plan: Sutton to be due to excess moisture in the perirectal area from creams/ointments. Seen by Dr. Tristan who recommended Aloe Morris cream 2-3 times per day and witch luna pads, as well as sitz baths 2-3 times per day. She will follow up with Dr. Trsitan in 2 weeks. (2) External hemorrhoid: Onset Date: ~2013 Code(s): K64.4 - Residual hemorrhoidal skin tags Status: Acute Assessment and Plan: Continue topical Tucks pads and aloe vesta ointment. Follow up for possible anoscopy with Dr. Tristan. Initiated on daily bowel regimen of Colace and Miralax. (3) Sepsis: Onset Date: ~03/2020 Qualifiers: Sepsis type: sepsis due to unspecified organism Sepsis acute organ dysfunction status: without acute organ dysfunction Qualified Code(s): A41.9 - Sepsis, unspecified organism Code(s): A41.9 - Sepsis, unspecified organism Status: Acute Assessment and Plan: Present on admisison with tachycardia and leukocytosis. Lactic 1.4. Suspected source of infection is urinary tract infection. Blood cultures negative. She was rehydrated with IVfluids and started on IV antibiotics. Sepsis resolved. Continue PO antibiotics for UTI as below. (4) Urinary tract infection: Onset Date: ~03/2020 Qualifiers: Hematuria presence: without hematuria Urinary tract infection type: site unspecified Qualified Code(s): N39.0 - Urinary tract infection, site not specified Code(s): N39.0 - Urinary tract infection, site not specified Status: Acute Assessment and Plan: Presented with dysuria and grossly abnormal urinalysis. Urine culture grew E. coli with susceptibility to Rocephin. She was treated with IV Rocephin and will transition to PO cefdinir to complete 7 days of antibiotics. (5) ADHD: Qualifiers: Attention deficit-hyperactivity disorder type: unspecified Qualified Code(s): F90.9 - Attention-deficit hyperactivity disorder, unspecified type Code(s): F90.9 - Attention-deficit hyperactivity disorder, unspecified type Status: Acute Assessment and Plan: Continue home Adderall. (6) Herpes: Code(s): B00.9 - Herpesviral infection, unspecified Status: Acute Assessment and Plan: Evaluated by Dr. Calloway. 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 She will continue Valtrex 1000 mg bid for 10 days. She may follow up with Dr. Calloway or her current [employer]. DS: Summary Hospital Course Reason for hospitalization: Rectal pain Hospital Course: Date of admission: 04/09/2020 Date of discharge: 04/11/2020 Jazmin Fay is a 29 year old female with a history of ADHD and hemorrhoids who presented to the emergency department on 04/09/2020 with complaints of rectal pain ongoing for 3 days with progressive worsening. At presentation, she was tachycardic in 130s with additional VSS, WBC 15.2, electrolytes stable, UA grossly abnormal, lactic 1.4, CT a/p with no clinical correlate for symptoms and evidence of Bartholin's gland cyst with no evidence of abscess seen on exam. Large external hemorrhoid seen on exam. She was admitted to the hospitalist service and was seen in consultation by general surgery and [employer]. She was treated with IV antibiotics for UTI and initiated on valacyclovir for suspected Herpes which was later confirmed by lab testing. Sepsis secondary to UTI resolved. Her pain persisted but, overall, improved significantly. Sutton to be secondary to pruritis ani and multiple methods were discussed to alleviate symptoms. She began feeling much better and requested discharge home. As no surgical intervention was required and patient was clinically improved, she was determin
--- NOTE | 2020-04-18 15:38 | PC.NURSE ---
Gonorrhea and Chlamydia are negative. Herpes Type 1 isolated from perirectal area. RAZA Lester aware. Dr. Calloway following up with patient regarding this result.
== END 2020-04-11 18:12 | disposition home or self-care (01) ==
LOC: ANHED 23:11 → ANH2MED 23:46
PROVIDERS: Physician Assistant; Admitting Provider Family Medicine; Emergency Provider Emergency Medicine; PCP Internal Medicine Gastroenterology; Visit Provider Family Medicine
DX: L29.0 Pruritus ani (principal); N39.0 Urinary tract infection, site not specified; A41.9 Sepsis, unspecified organism; K64.4 Residual hemorrhoidal skin tags; K62.89 Other specified diseases of anus and rectum; R11.2 Nausea with vomiting, unspecified; D72.829 Elevated white blood cell count, unspecified; R00.0 Tachycardia, unspecified; L03.818 Cellulitis of other sites; F90.9 Attention-deficit hyperactivity disorder, unspecified type; B00.9 Herpesviral infection, unspecified; N75.0 Cyst of Bartholin's gland
CPT/HCPCS: 36415; 74177; 80048; 80053; 81001; 81025; 83605; 83690; 85025; 85027; 87040; 87070; 87077; 87086; 87088; 87140; 87186; 87255; 87491; 87591; 87808; 96361; 96365; 96366; 96367; 96368; 96375; 96376; 99285; A9270; G0378; G0379; J0696; J1885; J2270; J2405; J2543; J3370; J7030; Q9967

== ENCOUNTER 2020-07-09 12:48 | Emergency (ER) | payer OTHER, SELFPAY ==
[2020-07-09] VITALS (18 sets, daily range): BP systolic 95–135; BP diastolic 49–92; PULSE 100–132; RESP 13–25; TEMP 36.3; O2SAT 91–98
--- NOTE | 2020-07-09 12:56 | ED.GENADULT ---
HPI - General Adult General Chief complaint: Alcohol <Erin Helm PA-C - Last Filed: 07/09/20 22:08> Stated complaint: intoxication <RAZA Dietrich Last Filed: 07/09/20 22:08> Time Seen by Provider: 07/09/20 12:55 <RAZA Dietrich Last Filed: 07/09/20 22:08> Source: patient <RAZA Dietrich Last Filed: 07/09/20 22:08> Mode of arrival: EMS <RAZA Dietrich Last Filed: 07/09/20 22:08> Limitations: no limitations <RAZA Dietrich Last Filed: 07/09/20 22:08> History of Present Illness HPI narrative: This 29-year-old female was brought in by EMS after they and the police responded to a welfare check initiated by her sister. Patient had been heard from since the day after Eric and her family was worried. When the police arrived she answer the door, she was intoxicated and admitted to drinking since the day after Eric when she became sad over her boyfriend cheating on her again. Here she is awake, cooperative and sad that she caused so much distress. She states that she was drinking because she wanted to numb the pain, she had no intention of killing herself. She was also sad because her children were gone with their father for the holiday. She understands why she is here and is grateful for her family that cared. She does see a therapist. <Erin Helm PA-C - Last Filed: 07/09/20 22:08> Onset (ago): hour(s) <RAZA Dietrich Last Filed: 07/09/20 22:08> Related Data Home medications: Home Medications Medication Instructions Recorded Confirmed Adderall 20 mg BID 04/10/20 04/10/20 loratadine [Claritin] 10 mg PO PRN PRN 04/10/20 04/10/20 ondansetron 4 mg PO 4XW PRN 04/10/20 04/10/20 <Erin Helm PA-C - Last Filed: 07/09/20 22:08> Allergies/adverse reactions: Allergies Allergy/AdvReac Type Severity Reaction Status Date / Time Sulfa (Sulfonamide Allergy Unknown Other Verified 07/09/20 12:56 Antibiotics) <Erin Helm PA-C - Last Filed: 07/09/20 22:08> Review of Systems Review of Systems: All systems reviewed & are unremarkable except as noted in HPI and below <Erin Helm PA-C - Last Filed: 07/09/20 22:08> [facility] Past Medical History Medical History: Medical History (Updated 07/10/20 @ 05:35 by Jacques Ibarra MD) ADHD Patient denies significant medical history <Erin Helm PA-C - Last Filed: 07/09/20 22:08> Family History Family History: Family History Father Colon cancer <Erin Helm PA-C - Last Filed: 07/09/20 22:08> Social History Social History: Social History (Updated 07/09/20 @ 13:18 by Erin Helm PA-C) Smoking status: Never smoker Alcohol intake: current Drinks per week: 5 Substance use: never Substance use type: does not use Living arrangements: with family Occupation/Education: occupation Additional occupation/education comments: RN Gender identity (if verbalized by the patient): Female Spiritual care concerns: No <Erin Helm PA-C - Last Filed: 07/09/20 22:08> Exam Const: General: no acute distress and alert <Erin Helm PA-C - Last Filed: 07/09/20 22:08> Orientation/consciousness: patient oriented x3 <Erin Helm PA-C - Last Filed: 07/09/20 22:08> HENMT: Head: normal to inspection <Erin Helm PA-C - Last Filed: 07/09/20 22:08> Eyes: Conjunctivae: conjunctivae normal <Erin Helm PA-C - Last Filed: 07/09/20 22:08> Pupils: Equal, round and reactive pupils present <Erin Helm PA-C - Last Filed: 07/09/20 22:08> Resp: Effort & Inspection: normal respiratory effort <Erin Helm PA-C - Last Filed: 07/09/20 22:08> Auscultation: clear to auscultation bilaterally <Erin Helm PA-C - Last Filed: 07/09/20 22:08> Cardio: Rate: tachycardic <Erin Helm PA-C - Last Filed:
[2020-07-09] MEDS: SODIUM CHLORIDE 0.9% IV 1,000 ML 999 ML IV CONT (13:08)
[2020-07-09 13:38] LABS: Ethanol 325 mg/dL (<10)
--- NOTE | 2020-07-09 14:37 | ECG_ITS ---
Measurements Intervals [place] Rate: 105 P: 52 WA: 120 QRS: 53 QRSD: 94 T: 54 QT: 337 QTc: 447 Interpretive Statements SINUS TACHYCARDIA BORDERLINE ECG Electronically Signed On 07-09-2020 15:09:46 SUMAC TANNER by Jose Hoff D.O.
--- NOTE | 2020-07-09 14:50 | PC.NURSE ---
Patient told Dr Crowder that if you send me home, I will hurt myself. This nurse was informed of this change in patient status. Sitter at bedside with patient at this time. This nurse went into room. Patient started asking this nurse about other people out in the world who want to hurt themselves. This nurse and Jessika bryan was trying to describe the process of this facility regarding SI patients but patient kept interuptting nurse and stated I don't want to listen to you anymore you worthless piece of shit! Nurse informed patient again of facility poilcy and patient asked nurse to leave room.
[2020-07-09 15:18] LABS: Basophils Absolute Auto 0.1 K/mm3 (0.0-0.1); Eosinophils Absolute Auto 0.1 K/mm3 (0-0.3); Eosinophils Percent Auto 1.2 % (0-4.4); Hematocrit 46.5 % (37.0-47.0); Hemoglobin 15.7 g/dL (12.0-15.0); Immature Granulocyte Absolute 0.03 K/mm3 (0.00-0.031); Immature Granulocyte Percent A 0.3 % (0-0.5); Lymphocytes Absolute Auto 2.26 K/mm3 (0.9-3.2); Lymphocytes Percent Auto 25.3 % (18.3-44.2); Mean Corpuscular HGB Conc 33.8 g/dl (32-36); Mean Corpuscular Hemoglobin 31.3 pg (26-34); Mean Corpuscular Volume 92.6 fl (80-100); Mean Platelet Volume 9.2 fl (7.4-10.4); Monocytes Absolute Auto 0.6 K/mm3 (0.1-0.6); Monocytes Percent Auto 6.7 % (2.6-8.5); Neutrophils Absolute Auto 5.9 K/mm3 (1.3-6.7); Neutrophils Percent Auto 65.5 % (45.5-73.1); Platelet Count Result 302 k/mm3 (150-375); Red Blood Count 5.02 M/mm3 (4.2-5.4); Red Cell Distribution Width 15.4 % (11.5-14.5)
[2020-07-09 15:21] LABS: Alanine Aminotransferase 26 U/L (4-35); Alkaline Phosphatase 92 U/L (38-126); Anion Gap 13 mmol/L (8-16); Aspartate Amino Transferase 35 U/L (14-36); Bilirubin,Total 0.4 mg/dL (0.2-1.3); Blood Urea Nitrogen 6 mg/dL (7-17); Calcium 8.7 mg/dL (8.4-10.2); Carbon Dioxide 24 mmol/L (22-30); Chloride 108 mmol/L (98-107); Estimated Glomerular Filt Rate > 60; Glucose 101 mg/dL (65-105); Potassium 3.9 mmol/L (3.4-5.0); Sodium 145 mmol/L (137-145)
--- NOTE | 2020-07-09 15:34 | PC.NURSE ---
Patient still unable to urinate. Refusing cath.
[2020-07-09 16:26] LABS: Amphetamine Screen Urine Negative (Negative); Barbiturate Screen Urine Negative (Negative); Benzodiazepines Screen Urine Negative (Negative); Cannabinoid Screen Urine Negative (Negative); Cocaine Screen Urine Negative (Negative); Methadone Screen Urine Negative (Negative); Opiate Screen Urine Negative (Negative); Phencyclidine Screen Urine Negative (Negative)
--- NOTE | 2020-07-09 20:28 | PC.NURSE ---
pt requesting to go home. pt denies any SI at this time. pt states that doctor, the one over there, said I can go home. My grandpa is probably already waiting in the waiting room for me. at the time of the coversation, no doctor or staff except this nurse and the sitter, was in the vicinity of pt's room.
[2020-07-09] MEDS: ONDANSETRON HCL ODT 4 MG TABLET PO (23:32)
[2020-07-09] MEDS: LORazepam (*CRX) 1 MG TABLET PO (23:32)
[2020-07-10] VITALS (24 sets, daily range): BP systolic 105–139; BP diastolic 66–88; PULSE 93–102; RESP 16; O2SAT 92–99
[2020-07-10 01:27] LABS: Ethanol 120 mg/dL (<10)
[2020-07-10 03:44] LABS: Ethanol 55 mg/dL (<10)
--- NOTE | 2020-07-10 04:30 | PC.NURSE ---
Ender Velazquez contacted to request a conveyor worker to come assess pt.
== END 2020-07-10 06:07 | disposition home or self-care (01) ==
PROVIDERS: Emergency Medicine; Physician Assistant; Emergency Provider Emergency Medicine; PCP Internal Medicine Gastroenterology
DX: F10.129 Alcohol abuse with intoxication, unspecified (principal); Y90.8 Blood alcohol level of 240 mg/100 ml or more; F32.9 Major depressive disorder, single episode, unspecified; F90.9 Attention-deficit hyperactivity disorder, unspecified type; R00.0 Tachycardia, unspecified
CPT/HCPCS: 36415; 80053; 80307; 81025; 84443; 85025; 93005; 96360; 99284; A9270; J1630; J7030

== ENCOUNTER 2022-05-18 15:19 | Emergency (ER) | payer OTHER, MEDICAID, SELFPAY ==
[2022-05-18 15:19] VITALS: BP 122/66; PULSE 120; RESP 16; TEMP 36.9; O2SAT 99
--- NOTE | 2022-05-18 16:01 | ED.PREGNANCY ---
HPI - General Chief complaint: Vaginal Bleeding <RAZA Alejo Last Filed: 05/18/22 18:35> Stated complaint: 13 weeks preg, vag bleeding <RAZA Alejo Last Filed: 05/18/22 18:35> Time Seen by Provider: 05/18/22 15:39 <RAZA Alejo Last Filed: 05/18/22 18:35> Source: patient <RAZA Alejo Last Filed: 05/18/22 18:35> Mode of arrival: ambulatory <RAZA Alejo Last Filed: 05/18/22 18:35> Limitations: no limitations <RAZA Alejo Last Filed: 05/18/22 18:35> History of Present Illness HPI Narrative: Patient is a 31 y/o (twins) currently 13 weeks gestation who presents to the ED with report of vaginal bleeding. Patient reports she urinated just prior to arrival and had a gush of blood from her vagina. She then presented to the ED. Patient denies any previous complications with her current . She has had an ultrasound showing an intrauterine . She denies any abdominal pain, nausea, vomiting, dysuria, fevers. Patient's TIN CAN LABORER is Dr. Monet with [facility]. Her next appointment is 05/22. <RAZA Alejo Last Filed: 05/18/22 18:35> Related Data Home medications: Home Medications Medication Instructions Recorded Confirmed Adderall 20 mg BID 04/10/20 04/10/20 loratadine 10 mg tablet (Claritin) 10 mg PO PRN PRN allergy symptoms 04/10/20 04/10/20 ondansetron 4 mg disintegrating 4 mg PO 4XW PRN nausea and vomiting 04/10/20 04/10/20 tablet <RAZA Alejo Last Filed: 05/18/22 18:35> Allergies/Adverse reactions: Allergies Allergy/AdvReac Type Severity Reaction Status Date / Time Sulfa (Sulfonamide Allergy Unknown Other Verified 07/09/20 12:56 Antibiotics) <Dyana Rachel PA-C - Last Filed: 05/18/22 18:35> Review of Systems Review of Systems: CONSTITUTIONAL: Denies fever, chills, or sweats. CARDIOVASCULAR: Denies chest pain. RESPIRATORY: Denies dyspnea. GASTROINTESTINAL: Denies abdominal pain, nausea, vomiting. GENITOURINARY: Reports vaginal bleeding. Denies dysuria. MUSCULOSKELETAL: Denies back pain. <Dyana Rachel PA-C - Last Filed: 05/18/22 18:35> All systems reviewed & are unremarkable except as noted in HPI and below <Dyana Rachel PA-C - Last Filed: 05/18/22 18:35> [facility] Past Medical History Medical History: Medical History (Updated 05/19/22 @ 00:00 by James Goetz) ADHD <Dyana Rachel PA-C - Last Filed: 05/18/22 18:35> Surgical History Surgical History: Surgical History (Updated 05/18/22 @ 16:07 by Dyana Rachel PA-C) No pertinent past surgical history <Dyana Rachel PA-C - Last Filed: 05/18/22 18:35> Family History Family History: Family History Father Colon cancer <Dyana Rachel PA-C - Last Filed: 05/18/22 18:35> Social History Social History: Social History Smoking status: Never smoker Alcohol intake: current Drinks per week: 5 Substance use: never Substance use type: does not use Additional occupation/education comments: RN Gender identity (if verbalized by the patient): Female Spiritual care concerns: No <Dyana Rachel PA-C - Last Filed: 05/18/22 18:35> Exam Narrative: GENERAL: Well appearing, well-nourished, non-toxic, in no acute distress. HEAD: Normocephalic, atraumatic. NECK: Supple. No adenopathy, no masses. RESPIRATORY: Airway patent, respirations nonlabored. Clear to auscultation bilaterally, no rales, rhonchi, wheezing. CARDIOVASCULAR: Regular rate and rhythm without murmurs, rubs, or gallops. Radial pulses 2+ and equal bilaterally. ABDOMINAL: Soft, no appreciable tenderness to palpation, nondistended, no hepatosplenomegaly. Normoactive BS.
--- NOTE | 2022-05-18 16:26 | PC.NURSE ---
heart tones 146 located in RLQ. Unsuccessful attempt at bloodwork. Pt asking if blood work is necessary, as she just had labs done Friday and is following up with OB next week. Pt states she just wanted to ensure that there was a heart beat present. Provider made aware.
[2022-05-18 16:33] LABS: Appearance Urine Clear (Clear); Bilirubin Urine Negative (Negative); Blood Urine 2+ (Negative); Color Urine Yellow (Yellow); Glucose Urine UA Negative (Negative); Ketones Urine Trace mg/dL (Negative); Leukocyte Esterase Ur Negative LEU/UL (Negative); Nitrate Urine Negative (Negative); Protein Urine Negative (Negative); Urobilinogen Urine 0.2 mg/dL (<2.0)
[2022-05-18 16:42] LABS: RBC Urine 0-2 /hpf (0-2); Squamous Epithelial Cell Urine Occasional /hpf (Few); WBC Urine 0-3 /hpf
[2022-05-18 16:50] LABS: Add Urine Microscopic? YES
[2022-05-18 17:14] VITALS: BP 108/74; PULSE 104; RESP 19; O2SAT 99
== END 2022-05-18 17:17 | disposition home or self-care (01) ==
PROVIDERS: Physician Assistant; Emergency Provider Emergency Medicine; PCP Internal Medicine Gastroenterology
DX: O20.0 Threatened abortion (principal); O99.341 Other mental disorders complicating pregnancy, first trimester; F90.9 Attention-deficit hyperactivity disorder, unspecified type; Z3A.13 13 weeks gestation of pregnancy
CPT/HCPCS: 81001; 99284

== ENCOUNTER 2023-04-11 15:37 | Emergency (ER) | payer OTHER, SELFPAY ==
--- NOTE | ~2023-04-11 | XR_ITS ---
EXAMINATION: XR chest 2V DATE: 04/11/2023 18:14 INDICATION: Fever and malaise TECHNIQUE: Frontal and lateral views of the chest are obtained COMPARISON: 01/12/2020 FINDINGS: The lungs are free of acute opacities. There is a questionable 1.5 cm nodule of the right l michelle apex. No pleural effusion or pneumothorax. The cardiomediastinal silhouette is normal. There is m ild thoracic spondylosis. IMPRESSION: 1. No acute cardiopulmonary abnormality. 2. Possible nodule of the right lung apex. Follow-up with CT of the chest is recommended. Reviewed, dictated and finalized at location F. IMPRESSION: 1. No acute cardiopulmonary abnormality. 2. Possible nodule of the right lung apex. Follow-up with CT of the chest is re commended.
--- NOTE | ~2023-04-11 | CT_ITS ---
EXAMINATION: CT abdomen pelvis w con DATE: 04/11/2023 18:26 INDICATION: Generalized abdominal pain and right flank pain. TECHNIQUE: Computed tomography (CT) of the abdomen and pelvis was performed with 100 mL Omnipaque-350 intravenous contrast. Automated exposure control and iterative reconstruction technique were employe d. The dose-length product was 346.72 mGy-cm. COMPARISON: None FINDINGS: Lung bases are clear. Heart size is normal. No pericardial or pleural effusion. Focal atelectasis at the ligamentum teres. Gallbladder, spleen, pancreas, bilateral adrenal glands and kidneys are normal. Bowels are unremarkable with no wall thickening or obstruction. Partially decompressed bladder is no rmal. Retroverted uterus and bilateral adnexa are unremarkable. No free intraperitoneal gas or fluid. No pathologically enlarged abdominal or pelvic lymphadenopathy. No significant change in a 1.8 cm li julia Bartholin cyst gland cyst at the right side of the introitus. Mild lumbar and lower thoracic spo ndylosis. IMPRESSION: 1. No acute intra-abdominal/pelvic process. Reviewed, dictated and finalized at location A.
[2023-04-11 15:49] VITALS: BP 116/87; PULSE 106; RESP 17; TEMP 36.4; O2SAT 99
[2023-04-11 16:05] LABS: Basophils Absolute Auto 0.1 K/mm3 (0.0-0.1); Basophils Percent Auto 0.6 % (0.2-1.2); Eosinophils Absolute Auto 0.1 K/mm3 (0-0.3); Eosinophils Percent Auto 0.9 % (0-4.4); Hematocrit 40.9 % (37.0-47.0); Hemoglobin 13.4 g/dL (12.0-15.0); Immature Granulocyte Absolute 0.03 K/mm3 (0.00-0.031); Immature Granulocyte Percent A 0.4 % (0-0.5); Lymphocytes Absolute Auto 2.55 K/mm3 (0.9-3.2); Lymphocytes Percent Auto 31.8 % (18.3-44.2); Mean Corpuscular HGB Conc 32.8 g/dl (32-36); Mean Corpuscular Volume 91.5 fl (80-100); Mean Platelet Volume 9.4 fl (7.4-10.4); Monocytes Absolute Auto 0.4 K/mm3 (0.1-0.6); Monocytes Percent Auto 5.5 % (2.6-8.5); Neutrophils Absolute Auto 4.9 K/mm3 (1.3-6.7); Neutrophils Percent Auto 60.8 % (45.5-73.1); Platelet Count Result 287 k/mm3 (150-375); Red Blood Count 4.47 M/mm3 (4.2-5.4)
[2023-04-11 16:13] LABS: Alanine Aminotransferase 27 U/L (6-35); Albumin Level 4.4 g/dL (3.5-5.1); Alkaline Phosphatase 48 U/L (38-126); Anion Gap 6 mmol/L (8-16); Aspartate Amino Transferase 27 U/L (14-36); Bilirubin,Total 0.8 mg/dL (0.2-1.3); Blood Urea Nitrogen 13 mg/dL (7-17); Calcium 9.2 mg/dL (8.4-10.2); Carbon Dioxide 25 mmol/L (22-30); Chloride 108 mmol/L (98-107); Estimated CRCL calculation 118 ml/min; Estimated Glomerular Filt Rate > 60; Glucose 123 mg/dL (65-110); Lipase 50 U/L (23-300); Potassium 3.8 mmol/L (3.4-5.0); Sodium 139 mmol/L (137-145)
[2023-04-11 16:19] LABS: Appearance Urine Cloudy (Clear); Bacteria Urine None Seen /hpf; Bilirubin Urine Negative (Negative); Blood Urine 3+ (Negative); Color Urine Dark Yellow (Yellow); Glucose Urine UA Negative (Negative); Ketones Urine 2+ mg/dL (Negative); Leukocyte Esterase Ur 2+ LEU/UL (Negative); Need Manual Microscopic Reviewed; Nitrate Urine Negative (Negative); Protein Urine 1+ mg/dL (Negative); RBC Urine >100 /hpf (0-2); Specific Grav Ur 1.027 (1.001-1.035); Squamous Epithelial Cell Urine Many /hpf (Few); WBC Urine 21-50 /hpf; pH Urine 5.5 (5.0-9.0)
[2023-04-11 16:21] LABS: Add Urine Microscopic? YES
[2023-04-11 17:16] VITALS: BP 125/52; PULSE 81
[2023-04-11 17:17] VITALS: BP 118/70; PULSE 97
[2023-04-11 17:18] VITALS: BP 128/59; PULSE 105
[2023-04-11 17:19] VITALS: BP 128/59; PULSE 100; RESP 20; TEMP 36.8; O2SAT 98
--- NOTE | 2023-04-11 17:49 | ED.NAVMDI ---
HPI - Nausea/Vomiting/Diarrhea General Chief complaint: Nausea/Vomiting/Diarrhea Stated complaint: n/v, abdominal pain Time Seen by Provider: 04/11/23 17:02 History of Present Illness HPI Narrative: 32-year-old female reports for evaluation for nausea, vomiting and abdominal pain x2-3 days. Patient states anytime she tries to eat or drink something even water, she immediately vomits. She is reporting generalized abdominal pain and right flank pain. She states around 2 weeks ago, she developed dysuria and urinary frequency and believes that she had a UTI. She states she has been self treating herself with cranberry juice because she does not like to take antibiotics due to fear of requiring a yeast infection. She states she had diarrhea 2 to 3 days ago which has since resolved. Her last bowel movement was 2 days ago. She denies hematochezia or dysentery, melena, obstipation. She reports having a fever of 101.3 this morning with body aches, chills and cold sweats. She has been taking ibuprofen with improvement, her last dose was 1200 today. She denies chest pain or shortness of breath, cough or congestion, vaginal discharge or concern for STDs. Related Data Home Medications Medication Instructions Recorded Confirmed Adderall 20 mg BID 04/10/20 04/10/20 loratadine 10 mg tablet (Claritin) 10 mg PO PRN PRN allergy symptoms 04/10/20 04/10/20 ondansetron 4 mg disintegrating 4 mg PO 4XW PRN nausea and vomiting 04/10/20 04/10/20 tablet Allergies Allergy/AdvReac Type Severity Reaction Status Date / Time Sulfa (Sulfonamide Allergy Unknown Other Verified 04/11/23 17:21 Antibiotics) Review of Systems Review of Systems: CONSTITUTIONAL: See HPI EYES: Denies visual changes, redness, or discharge. ENT: Denies rhinorrhea, congestion, sore throat, or otalgia. CARDIOVASCULAR: Denies chest pain, palpitations, or edema. RESPIRATORY: Denies cough or dyspnea. GASTROINTESTINAL: See HPI GENITOURINARY: See HPI SKIN: Denies rash or itching. MUSCULOSKELETAL: See HPI NEUROLOGIC: Denies headache, numbness, dizziness, or weakness. PSYCHIATRIC: Denies anxiety or depression. [facility] Past Medical History Medical History ADHD Surgical History Surgical History No pertinent past surgical history Family History Family History Father Colon cancer Social History Social History Smoking status: Never smoker Alcohol intake: current Drinks per week: 5 Substance use: never Substance use type: does not use Living arrangements: with family Occupation/Education: occupation Additional occupation/education comments: RN Gender identity (if verbalized by the patient): Female Spiritual care concerns: No Exam Narrative: GENERAL: Nontoxic appearing, no acute distress. Patient does appear uncomfortable, she is pleasant and conversational. HEAD: Normocephalic EYES: PERRLA ENT: Nares clear. Mucous membranes dry. Oropharynx without tonsillar hypertrophy exudate or other lesions. NECK: Supple. CHEST: No respiratory distress. Clear to auscultation, no adventitious breath sounds. HEART: Regular rate and rhythm. No murmur heard. Normal peripheral pulses. ABDOMEN: Soft, normal active bowel sounds. Generalized abdominal tenderness without guarding, rebound or rigidity. No CVA tenderness. EXTREMITIES: Normal range of motion. No edema. SKIN: Warm, dry, no rash. NEURO: No focal deficits. Alert and oriented x3. PSYCH: Normal mood and affect. Course Vital Signs Vital signs: Vital Signs Temperature 97.6 F 04/11/23 15:49 Pulse Rate 106 H 04/11/23 15:49 Respiratory Rate 17 04/11/23 15:49 Blood Pressure 116/87 04/11/23 15:49 Pulse Oximetry 99 04/11/23 15:49 Oxygen Delivery Room
[2023-04-11] MEDS: MORPHINE SULFATE (*CRX) 4 MG/ML INJ IV PUSH (17:55)
[2023-04-11] MEDS: ONDANSETRON INJ 4 MG/2 ML VIAL IV PUSH (17:55)
[2023-04-11] MEDS: SODIUM CHLORIDE 0.9% IV 1,000 ML 999 ML IV CONT ×2 (17:55→20:49)
[2023-04-11 19:08] LABS: Influenza A QL RT-PCR Negative (Negative); Influenza B QL RT-PCR Negative (Negative); SARS-CoV-2 RNA PCR Negative (Negative)
--- NOTE | 2023-04-11 19:11 | PC.NURSE ---
This RN took patient report from FRANK Hastings. THis RN assumed care of patient.
== END 2023-04-11 21:53 | disposition home or self-care (01) ==
PROVIDERS: Emergency Medicine; Emergency Provider Physician Assistant; PCP Internal Medicine Gastroenterology
DX: N30.01 Acute cystitis with hematuria (principal); R11.2 Nausea with vomiting, unspecified; Z20.822 Contact with and (suspected) exposure to COVID-19; F90.9 Attention-deficit hyperactivity disorder, unspecified type; R91.8 Other nonspecific abnormal finding of lung field
CPT/HCPCS: 36415; 71046; 74177; 80053; 81001; 81025; 83690; 85025; 87086; 87636; 96361; 96365; 96375; 99284; J0696; J2270; J2405; J7030; Q9967

== ENCOUNTER 2024-05-27 16:35 | Outpatient (CLI) | payer BC, SELFPAY ==
--- NOTE | ~2024-05-27 | XR_ITS ---
EXAMINATION: XR lumbar spine 2-3V DATE: 05/27/2024 17:21 INDICATION: Low back pain TECHNIQUE: Anteroposterior and lateral views of the lumbar spine, and cone-down lateral view of the l umbosacral junction were obtained. COMPARISON: CT abdomen and pelvis dated 04/11/2023 FINDINGS: 11 degrees thoracolumbar dextrocurvature. Sagittal alignment is normal. Vertebral body heights are no rmal. Mild disc height loss at L5-S1. Multilevel mild lumbar facet osteoarthritis and mild bilateral sacroiliac osteoarthritis. IMPRESSION: 1. Degree thoracolumbar dextrocurvature with mild lumbar spondylosis. Reviewed, dictated and finalized at location B. L PROJECT MANAGER
== END 2024-05-27 16:36 | disposition home or self-care (01) ==
LOC: MICIMG 16:36
PROVIDERS: PCP Internal Medicine; Visit Provider Internal Medicine Gastroenterology
DX: M43.06 Spondylolysis, lumbar region (principal); M43.8X5 Other specified deforming dorsopathies, thoracolumbar region
CPT/HCPCS: 72100

== ENCOUNTER 2024-07-15 13:15 | Outpatient (RCR) | payer BC, SELFPAY ==
--- NOTE | 2024-05-31 11:06 | OPREHPOC ---
Outpatient Therapy Plan of Care This is a Multidisciplinary Plan of Care that may contain components documented by all disciplines (PT, OT, and ST.) PT Problem 1 PT Problem #1 Knowledge Deficit PT Goal 1 Goal / Goal Update *indep with HEP * correct body mechanics with lifting from the floor Target Visit 8 PT Problem 2 PT Problem #2 Pain PT Goal 1 Goal / Goal Update 1* pain rating at worst of 7/10 2* radicular pain into R LE intermittent 3* reported sleeping awaken 2x/night due to pain 4* Oswestry self rating of 40% limitation in activity level Target Visit 8 PT Problem 3 PT Problem #3 Impaired Functional Mobil PT Goal 1 Goal / Goal Update 1* pt transfer supine/sit without pain increase 2* pt transfer sit/stand without pain increase 3* pt ambulate with equal weight shift R/L Target Visit 8
--- NOTE | 2024-05-31 11:06 | PTOPEVAL1 ---
Assessment and note entered by Екатерина Rubin, PT Evaluation Information Assessment Status Evaluation ICD-10 Condition Codes (PT) Pain in low back M54.50 Onset November 2022 Subjective Information started having pain in her back after having her son, had an epidural-- initially placed in a blood vessel and both legs went numb-- repositioned the needle and then was OK ; May 28-Went to ER at [place] due to R leg entirely numb; had MRI per pt-disc L5-S1;stayed there 24 hours; taking steroid pack has not had PT for her back xrays: thoracic-lumbar dextrocurvature, mild facet OA, mild bilateral SI OA, decrease disc height L 5-6; Activity: have children: twins 10 yr and 18 months; 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 Pain is radicular into R foot that is constant numbness. Oswestry self rating of 52% limitation in activity level. She reports decreased sit, stand, walking, sleeping and activity level. She is active and has young children. With the evaluation: she has decreased WB on R LE trunk extension increases her pain; supine R leg pull decreases her pain; pain with supine R SLR. Skilled PT services are indicated for modalities to decrease pain, therapeutic exercises to strengthen trunk and hips with education for HEP and back care. Plan of Care Interventions Electrical Stimulation,Hot Pack/Cold Pack,Manual Therapy,Mechanical Traction,Neuro Re-education, Patient Education,Therapeutic Activities, Therapeutic Exercise,Ultrasound,Other Other Interventions taping PT Services Indicated Yes Treatment Frequency and 2x/wk for 8 visits Duration These treatments will address the objective and functional deficits as defined above. The patient will be advanced safely and appropriately in order for the patient to progress towards his/her prior level of function. Additional exercises will be introduced and as well as a comprehensive home exercise program upon discharge, if needed, ?to ensure carryover of functional gains achieved in the clinic. This treatment plan has been reviewed and agreement upon by the patient.
--- NOTE | 2024-05-31 11:08 | PCPTNOTE ---
pt was 15 minutes late for today' eval appt.
--- NOTE | 2024-06-25 12:00 | PCPTNOTE ---
pt did not show for today's reeval appt; called and left voice mail message for her.
--- NOTE | 2024-07-16 08:42 | OPREHPOC ---
Outpatient Therapy Plan of Care This is a Multidisciplinary Plan of Care that may contain components documented by all disciplines (PT, OT, and ST.) PT Problem 1 PT Problem #1 Knowledge Deficit PT Goal 1 Goal / Goal Update *indep with HEP * correct body mechanics with lifting from the floor Target Visit 15 Progress Partially Met PT Problem 2 PT Problem #2 Pain PT Goal 1 Goal / Goal Update 1* pain rating at worst of 5/10 2* radicular pain into R LE intermittent 3* reported sleeping awaken 2x/night due to pain 4* Oswestry self rating of 40% limitation in activity level Target Visit 15 Progress Partially Met PT Problem 3 PT Problem #3 Impaired Functional Mobility PT Goal 1 Goal / Goal Update 1* pt transfer supine/sit without pain increase 2* pt transfer sit/stand without pain increase 3* pt ambulate with equal weight shift R/L Target Visit 15 Progress Partially Met PT Problem 4 PT Problem #4 Impaired Strength PT Goal 1 Goal / Goal Update 1. Improve nora hip abduction strength to 4+/5 to improve pelvic stability with ADL and gait 2. Improve lower abdominal strength to 4/5 to improve lumbar and pelvic stability with hip disassociation for ADL performance Target Visit 15
--- NOTE | 2024-07-16 08:43 | PTOPPROG ---
Assessment and note entered by Luis Alberto Henry, PT Evaluation Information Assessment Status Progress ICD-10 Condition Codes (PT) Pain in low back M54.50 Onset November 2022 Subjective Information Reports that she had the injection and had some brief relief but did not last long. She has been having continued trouble now 2 weeks out of injection. 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 Pain gets worse by the end of the day. She has a lot of trouble lifting and interacting with her child. Feels that the pain in her back is grueling but the sharp pain and tingling in her back is causing her the most pain and discomfort. Pain goes all the way to her toes and feels very heavy. Also reports that she has some bladder control issues which have been happening for about 2 years now. Some pain in bladder reported. Assessment PT Clinical Summary Patient presents with signs and symptoms of poor lower abdominal control, hip weakness, and lumbar instability. Poor hip disassociation noted in right hip with abdominal activation. Patient case was discussed with pelvic floor therapist given her reported history of compounding pelvic floor issues as well. Patient is following up with urology next week and was recommended to get a referral to pelvic floor therapy at this time. Continues to show need for skilled therapy on hip and lumbar spine for stabilization and controlled functional mobility. Plan of Care Interventions Electrical Stimulation,Hot Pack/Cold Pack,Manual Therapy,Mechanical Traction,Neuro Re-education, Patient/Caregiver Education,Therapeutic Activities ,Therapeutic Exercise,Ultrasound,Other Other Interventions taping PT Services Indicated Yes Treatment Frequency and 2x/week for 8 visits Duration These treatments will address the objective and functional deficits as defined above. The patient will be advanced safely and appropriately in order for the patient to progress towards his/her prior level of function. Additional exercises will be introduced and as well as a comprehensive home exercise program upon discharge, if needed, ?to ensure carryover of functional gains achieved in the clinic. This treatment plan has been reviewed and agreement upon by the patient.
--- NOTE | 2024-07-21 11:04 | PCPTNOTE ---
No show no call, reason unknown. JOSE
--- NOTE | 2024-08-16 08:46 | PTOPDC ---
Assessment and note entered by Екатерина Rubin, PT Assessment Status Discharge - Pt Not Present ICD-10 Condition Codes (PT) Pain in low back M54.50 Onset November 2022 Subjective Information pt was not seen this date. Assessment PT Clinical Summary Jazmin has received 7 PT sessions, from May 31 to July 15. She then stopped attending therapy. She had 2 no call/no show for scheduled appointments. Discharge PT due to not attending. The goals were not addressed. Plan of Care PT Services Indicated No
== END 2024-08-16 12:42 | disposition home or self-care (01) ==
LOC: ANHPT 13:15
PROVIDERS: PCP Internal Medicine; Visit Provider Internal Medicine
DX: M54.50 Low back pain, unspecified (principal)
CPT/HCPCS: 97014; 97110; 97112; 97140; 97161; 97530; G0283